=== PATIENT | female | born 1980 | race Hispanic/Latino ===

== ENCOUNTER 2017-09-29 16:49 | Emergency (ER) | payer OTHER ==
[2017-09-29 17:16] VITALS: BP 148/96; PULSE 72; RESP 18; TEMP 98; O2SAT 100
[2017-09-29 18:26] LABS: BASO # 0.1 K/uL (0.0-0.2); BASO % 0.5 % (0.0-2.0); EOS # 0.2 K/uL (0.0-0.7); EOS % 0.7 % (0.0-4.0); HEMOGLOBIN 13.9 g/dL (12.0-16.0); LYMPH # 2.1 K/uL (1.0-4.3); LYMPH % 10.1 % (20.0-40.0); MEAN CELL VOLUME 90.5 fl (81.0-99.0); MEAN CORPUSCULAR HEMOGLOBIN 29.7 pg (27.0-31.0); MEAN CORPUSCULAR HGB CONC 32.8 g/dL (33.0-37.0); MEAN PLATELET VOLUME 9.3 fl (7.2-11.7); MONO # 1.1 K/uL (0.0-0.8); MONO % 5.3 % (0.0-10.0); NEUT # 17.5 K/uL (1.8-7.0); NEUT % 83.4 % (50.0-75.0); RBC 4.7 Mil/uL (3.80-5.20); RED CELL DISTRIBUTION WIDTH 12.7 % (11.5-14.5)
--- NOTE | 2017-09-29 18:31 | ED PDOC ---
HPI: Abdomen Time Seen by Provider: 09/29/17 17:22 Chief Complaint (Nursing): Abdominal Pain Chief Complaint (Provider): Abdominal Pain History Per: Patient History/Exam Limitations: no limitations Onset/Duration Of Symptoms: Days (x3 days) Current Symptoms Are (Timing): Still Present Additional Complaint(s): 37 year old female presents to the emergency department with a complaint of a constant abdominal pain to the epigastric region that started several hours prior to arrival. States pain has been intermittent for the last 2 days, felt better yesterday, had a glass a win with food, and started feeling the pain again today. Associated with an episode of vomiting (non-bilious and non-bloody ) with pain radiating to the back. Denies chest pain, fever, diarrhea, or any urinary symptoms. Of note, patient had not experienced similar symptoms in the past PMD: [facility] Past Medical History Reviewed: Historical Data, Nursing Documentation, Vital Signs Vital Signs: Last Vital Signs Temp 98 F 09/29/17 17:13 Pulse 72 09/29/17 17:13 Resp 18 09/29/17 17:13 BP 148/96 H 09/29/17 17:13 Pulse Ox 100 09/29/17 18:35 - Medical History PMH: No Chronic Diseases - Surgical History Surgical History: No Surg Hx - Family History Family History: States: Unknown Family Hx - Social History Current smoker - smoking cessation education provided: No Alcohol: Occasional Drugs: Denies - Allergies Allergies/Adverse Reactions: Allergies Allergy/AdvReac Type Severity Reaction Status Date / Time No Known Allergies Allergy Verified 09/29/17 17:13 Review of Systems ROS Statement: Except As Marked, All Systems Reviewed And Found Negative (As per HPI, otherwise negative) Constitutional: Negative for: Fever Cardiovascular: Positive for: Chest Pain Gastrointestinal: Positive for: Vomiting (1 episode), Abdominal Pain. Negative for: Diarrhea, Hematemesis Genitourinary Female: Negative for: Dysuria, Frequency, Incontinence, Hematuria Musculoskeletal: Positive for: Back Pain Physical Exam - Reviewed Nursing Documentation Reviewed: Yes Vital Signs Reviewed: Yes - Physical Exam Appears: Positive for: Non-toxic, No Acute Distress, Uncomfortable Head Exam: Positive for: ATRAUMATIC, NORMAL INSPECTION, NORMOCEPHALIC Skin: Positive for: Normal Color, Warm, Dry Eye Exam: Positive for: Normal appearance, EOMI, PERRL Neck: Positive for: Normal, Supple Cardiovascular/Chest: Positive for: Regular Rate, Rhythm. Negative for: Murmur Respiratory: Positive for: Normal Breath Sounds. Negative for: Accessory Muscle Use, Respiratory Distress Gastrointestinal/Abdominal: Positive for: Soft, Tenderness (Epigastric and RUQ tenderness). Negative for: Normal Exam Extremity: Positive for: Normal ROM. Negative for: Pedal Edema Neurologic/Psych: Positive for: Alert, Oriented (x3) - Laboratory Results Result Diagrams: 09/29/17 18:10 09/29/17 18:10 - ECG O2 Sat by Pulse Oximetry: 100 (RA) Pulse Ox Interpretation: Normal Medical Decision Making Medical Decision Making: Time: 1801 Initial impression: Abdominal pain differential includes gallbladder disease, cholecystitis, gastritis, and pancreatitis Initial plan: EKG Lipase CMP CBC w/ diff Morphine 4 mg IVP Zofran 4 mg IVP Gallbladder US reevaluation Time: 1809 --WBC: 21.0 (HIGH) Scribe Attestation: Documented by Cat Fatima, acting as a scribe for Lashanda Maxwell MD. Provider Scribe Attestation: All medical record entries made by the Scribe were at my direction and personally dictated by me. I have reviewed the chart and agree that the record accurately reflects my personal performance of the history, physical exam, medical decision making, and the department course for this patient. I have also personally directed, reviewed, and agree with the discharge instructions and disposition. Disposition - Clinical Impression Clinical Impression: Abdominal pain - Patient ED Disposition Is Patient to be Admitted: Transfer of Care Counseled Patient/Family Regarding: Studies Performed, Diagnosis - Disposition Disposition: Transfer of Care Disposition Time: 18:59 Condition: STABLE Forms: [employer] (Luxembourgish) Patient Signed Over To: Anirudh Caban Handoff Comments: pending US and final disposition.
[2017-09-29 18:36] LABS: ALB/GLOB RATIO 1.4 (1.0-2.1); ALBUMIN 4.8 g/dL (3.5-5.0); ALT/SGPT 129 U/L (9-52); AST/SGOT 167 U/L (14-36); BLOOD UREA NITROGEN 18 mg/dl (7-17); CALCIUM 9.7 mg/dL (8.4-10.2); GFR AFRICAN-AMERICAN > 60; GFR NON-AFRICAN AMERICAN > 60; LIPASE 176 U/L (23-300)
[2017-09-29] MEDS ORDERED: Sodium Chloride 0.9% 1,000 ML IV STA (18:51)
--- NOTE | 2017-09-29 19:15 | ED PDOC ---
- Laboratory Results Result Diagrams: 09/29/17 18:10 09/29/17 18:10 - ECG O2 Sat by Pulse Oximetry: 100 (RA) Medical Decision Making Medical Decision Making: Time: 1899 --Patient was endorsed from Dr. Maxwell to me. --Pending Gallbladder US and reassessment. Time: 2005 --Gallbladder US FINDINGS: Liver: Fatty infiltration. No mass. No intrahepatic ductal dilatation. Gallbladder: No gallstones. No wall thickening. No pericholecystic fluid. No sonographic Byrd's sign. Common bile duct: No dilatation. No stones. Pancreas: Unremarkable as visualized. Right kidney: Normal echogenicity. No hydronephrosis. IMPRESSION: 1. No acute findings. 2. Non-acute findings are described above 23:46 Abd/Pelvis CT FINDINGS: Lower thorax: Mild atelectasis/scarring. Linear calcifications or sutures along right lung base. ABDOMEN: Liver: Unremarkable. No mass. Gallbladder and bile ducts: Apparent minimal haziness about gallbladder. No calcified gallstones. No significant ductal dilation. Pancreas: No ductal dilation. No mass. Spleen: No splenomegaly. Adrenals: No mass. Kidneys and ureters: No mass. No hydronephrosis. Stomach and bowel: Segmental areas of probable underdistention of sigmoid colon/ rectum. No definite mural thickening. No obstruction. Appendix: Normal caliber. No inflammation. PELVIS: Bladder: Unremarkable. Reproductive: Unremarkable as visualized. ABDOMEN and PELVIS: Intraperitoneal space: No significant fluid collection. No free air. Bones/joints: Minimal degenerative changes of spine. Disc herniations within lumbar spine, suboptimally evaluated. Soft tissues: Unremarkable. Vasculature: Unremarkable. No aneurysm. Lymph nodes: No pathologically enlarged lymph nodes. IMPRESSION: 1. Apparent minimal haziness about gallbladder. Clinical correlation is needed. 2. Incidental/non-acute findings are described above. 01:00 --Pt states the pain was less than earlier but still has discomfort in epigastric region. Pt was given simethicone and reassessed afterwards. Pt felt well enough to go home. Blood culture was sent because pt had a severe infection x1 year ago and was concerning it might be something related. Pt tolerated PO in ER and leukocytosis likely secondary to pain and vomit. Advised pt to follow-up with PMD on Sunday for reevaluation and repeat CBC. Pt wants to go home but return precautions were discussed if worsening pain, fever, vomiting or other continuing symptoms worsen. Scribe Attestation: Documented by Cat Fatima, acting as a scribe for Anirudh Caban MD. Provider Scribe Attestation: All medical record entries made by the Scribe were at my direction and personally dictated by me. I have reviewed the chart and agree that the record accurately reflects my personal performance of the history, physical exam, medical decision making, and the department course for this patient. I have also personally directed, reviewed, and agree with the discharge instructions and disposition. Disposition - Clinical Impression Clinical Impression: Abdominal pain - POA Present On Arrival: None - Disposition Referrals: MELANIE PICHARDO [Other] Disposition: Routine/Home Disposition Time: 01:10 Condition: STABLE Prescriptions: Omeprazole 20 mg PO DAILY #30 capsule.dr Kirk [Gas Relief] 80 mg PO BID #30 ctb Instructions: Gastritis (DC), Acute Abdominal Pain (ED), Gas and Bloating (ED) Forms: [employer] (Bur[place]ian)
[2017-09-29] MEDS ORDERED: Iohexol 240 (50 ml) PO ONE (20:44)
[2017-09-29] MEDS ORDERED: Iohexol 240 (50 ml) ONE (21:17)
[2017-09-29] MEDS ORDERED: Iohexol 300 100 ML IJ ONE (22:48)
[2017-09-30] MEDS ORDERED: Simethicone 80 mg Chewtab PO STA (00:04)
--- NOTE | 2017-09-30 08:14 | US ---
HISTORY: epigastric pain COMPARISON: None. TECHNIQUE: Sonographic evaluation of the right upper quadrant of the abdomen. FINDINGS: LIVER: Measures 14 cm in length. Normal echogenicity of the liver parenchyma. No mass. No intrahepatic bile duct dilatation. GALLBLADDER: Unremarkable. No gallstones. COMMON BILE DUCT: Measures 3 mm. No stones. No dilatation. PANCREAS: Unremarkable as visualized. No mass. No ductal dilatation. RIGHT KIDNEY: Measures 11 cm in length. Normal echogenicity. No calculus, mass, or hydronephrosis. AORTA: No aneurysmal dilatation. IVC: Unremarkable. OTHER FINDINGS: None . IMPRESSION: Unremarkable right upper quadrant ultrasound. This agrees with preliminary report provided by the on-call radiologist. No acute findings.
--- NOTE | 2017-09-30 11:57 | CT ---
PROCEDURE: CT Abdomen and Pelvis with contrast HISTORY: epigastric pain, vomiting, leukocytosis COMPARISON: None. TECHNIQUE: Contrast dose: 90 cc Omnipaque Radiation dose: Total exam DLP = 791 mGy-cm. This CT exam was performed using one or more of the following dose reduction techniques: Automated exposure control, adjustment of the mA and/or kV according to patient size, and/or use of iterative reconstruction technique. FINDINGS: LOWER THORAX: Evaluation of the lung bases reveals mild linear subsegmental atelectasis. There is a 7 millimeter x 8 millimeter nodular density seen in the inferior left lower lobe on axial image 29. This is also seen on coronal image 76. This may be part of some pleural parenchymal scarring but will require further clinical follow-up given the size. Mild linear subsegmental atelectasis is seen elsewhere at the lung bases. No pleural effusion is seen. Visualized esophagus is unremarkable. LIVER: Liver is mildly fatty infiltrated, without evidence of focal mass or intrahepatic ductal dilatation. No perihepatic ascites is seen. GALLBLADDER AND BILE DUCTS: No gallstones or gallbladder wall thickening is noted. Minimal amount of nonspecific haziness is noted adjacent to the gallbladder wall. Common bile duct is normal in size. PANCREAS: Unremarkable. No gross lesion or ductal dilatation. SPLEEN: Unremarkable. ADRENALS: Unremarkable. No mass. KIDNEYS AND URETERS: Unremarkable. No hydronephrosis. No solid mass. VASCULATURE: Unremarkable. No aortic aneurysm. BOWEL: No colonic wall thickening or bowel obstruction is identified. Some residual fecal material is appreciated in the right colon which may suggest constipation. No small bowel fold thickening or obstruction is noted. Visualized stomach is unremarkable. There may be some very mild thickening of the 1st and 2nd portions of the duodenum, although this may be related to under distention. Mild amount of duodenitis is not excluded APPENDIX: Normal appendix. PERITONEUM: No ascites is seen elsewhere. LYMPH NODES: Unremarkable. No enlarged lymph nodes. BLADDER: Unremarkable. REPRODUCTIVE: Small amount of low density is seen centrally within the uterus. Uterus is otherwise normal in size. No gross adnexal masses are noted. BONES: Mild degenerative changes are seen in the lower lumbar spine region. No lytic process is noted OTHER FINDINGS: None. IMPRESSION: Mild nonspecific haziness adjacent to the gallbladder without gallbladder wall thickening or gallstones noted. There is additionally some possible mild thickening of the duodenum which may suggest mild duodenitis. A portion of the thickening may be related to underdistention. No other appreciable acute inflammatory process in the abdomen or pelvis. Incidental finding of rounded pleural parenchymal change and nodularity at the left lung base measuring 7 millimeters x 8 millimeters in size. This will require further clinical follow-up utilizing 2017 Fleischner guidelines. This represents a discrepancy from the preliminary report. This will be placed into the discrepancy folder for follow-up utilizing normal department protocol.
--- NOTE | 2017-09-30 12:00 | CARD ---
APPROVED REPORT EKG Measurement Heart [id number] [id number] <Conclusion> Normal sinus rhythm Normal ECG
== END 2017-09-30 01:10 | disposition home or self-care (01) ==
LOC: H.ER 16:49
DX: K29.70 Gastritis, unspecified, without bleeding (principal); R14.0 Abdominal distension (gaseous); D72.829 Elevated white blood cell count, unspecified
CPT/HCPCS: 74177; 76705; 80053; 81025; 83690; 85025; 87040; 93005; 96374; 96375; 99285; C9113; J2270; J2405; J7040; Q9966; Q9967